=== PATIENT | male | born 1940 | race Caucasian/White ===

== ENCOUNTER → 2016-05-09 | Outpatient (CLI) | payer MEDICARE, BC ==
[2016-05-09 11:07] VITALS: BP 147/86
== END ==
LOC: MHUC 10:45
PROVIDERS: ATTEND Physician Assistant
DX: H66.002 Acute suppurative otitis media without spontaneous rupture of ear drum, left ear (principal)
CPT/HCPCS: 99213

== ENCOUNTER → 2016-06-05 | Outpatient (CLI) | payer MEDICARE, BC ==
[2016-06-05 15:57] VITALS: BP 142/72
== END ==
LOC: MHUC 12:05
PROVIDERS: ATTEND Physician Assistant
DX: R07.81 Pleurodynia (principal)
CPT/HCPCS: 99213

== ENCOUNTER → 2016-09-07 | Outpatient (CLI) | payer MEDICARE, BC ==
[~2016-09-07] MED LIST: AGM500T PO; ALLO300T2 PO; ASPI-860 PO; ATEN-155 PO; AZIT250T81 PO; CHOL10002 PO; COLC0.6T9 PO; CYCL5TAB PO; FISH OIL500 M1 PO; HCT25T PO; KCL10CCR PO; LSRT50T PO; MAGN250T7 PO; PRAM0.252 PO; RANI150T66 PO
[2016-09-07 07:44] LABS: BASOPHILS % (AUTO) 1 % (0-2); EOSINOPHILS # (AUTO) 0.2 10^3uL; EOSINOPHILS % (AUTO) 4 % (0-4); LYMPHOCYTES # (AUTO) 0.7 X10^3; MEAN CORPUSCULAR HEMOGLOBIN 28.3 PG (26.0-34.0); MEAN CORPUSCULAR VOLUME 86 FL (80-100); MEAN PLATELET VOLUME 10.7 FL (6.0-9.5); MONOCYTES # (AUTO) 0.4 X10^3; MONOCYTES % (AUTO) 8 % (3-11); NEUTROPHILS # (AUTO) 4.3 X10^3; NEUTROPHILS % (AUTO) 75 % (51-67); PLATELET COUNT 151 10^3uL (150-450); WHITE BLOOD COUNT 5.67 10^3uL (4.0-11.0)
[2016-09-07 08:56] LABS: ANION GAP 15.4 MEQ/L (3-15); CALCULATED IONIZED CALCIUM 4.3 mg/dL (3.8-4.6); TOTAL PROTEIN 7.2 g/dL (6.4-8.5)
== END ==
LOC: LAB 07:20
PROVIDERS: ATTEND Internal Medicine
DX: Z00.00 Encounter for general adult medical examination without abnormal findings (principal); I10 Essential (primary) hypertension; G62.89 Other specified polyneuropathies; M1A.39X0 Chronic gout due to renal impairment, multiple sites, without tophus (tophi); K21.9 Gastro-esophageal reflux disease without esophagitis; R05 Cough
CPT/HCPCS: 36415; 80053; 80061; 84443; 84550; 85025